=== PATIENT | female | born 1985 | race Caucasian/White ===

== ENCOUNTER 2016-12-08 01:30 | Emergency (ER) | payer SELFPAY ==
[~2016-12-08] VITALS: Ht 154.9 cm; Wt 95.3 kg
[2016-12-08 01:36] VITALS: BP 128/65
--- NOTE | 2016-12-08 01:36 | NUR ---
PT [facility] BLS. TAKEN TO BED 6
--- NOTE | 2016-12-08 01:44 | NUR ---
Dr. Olivier evaluating patient at bedside.
[2016-12-08] MEDS ORDERED: KETOROLAC 60 MG/2 ML VIAL IM ONE (02:00)
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
--- NOTE | 2016-12-08 02:53 | NUR ---
PT RETURN FROM CT
[2016-12-08 04:02] VITALS: BP 108/78
--- NOTE | 2016-12-08 04:02 | NUR ---
Patient discharged with v/s stable. Written and verbal after care instructions given and explained. Patient alert, oriented and verbalized understanding of instructions. Ambulatory with steady gait. All questions addressed prior to discharge. ID band removed. Patient advised to follow up with PMD. Rx of IBUPROFEN 800MG TAB given. Patient educated on indication of medication including possible reaction and side effects. Opportunity to ask questions provided and answered.
== END 2016-12-08 04:02 | disposition home or self-care (01) ==
LOC: MED 01:30
DX: M94.0 Chondrocostal junction syndrome [Tietze] (principal); V49.59XA Passenger injured in collision with other motor vehicles in traffic accident, initial encounter; Y93.89 Activity, other specified; Y92.89 Other specified places as the place of occurrence of the external cause; Y99.8 Other external cause status
CPT/HCPCS: 71250; 81025; 96372; 99284; J1885